=== PATIENT | female | born 1955 | race Caucasian/White ===

== ENCOUNTER 2016-09-05 12:33 | Emergency (ER) | payer OTHER ==
[2016-09-05] MEDS ORDERED: PHENERGAN IV ONE (12:53)
[2016-09-05] MEDS ORDERED: SODIUM CHLORIDE 0.9% INJ ONE (12:53)
--- NOTE | 2016-09-05 12:56 | PROVIDER DOCUMENTATION ---
HPI-Abdominal Pain/GI Problem - General Chief Complaint: N/V/D Stated Complaint: ABD PAIN Time Seen by Provider: 09/05/16 12:44 Source: patient Allergies/Adverse Reactions: Patient Allergies Allergy/AdvReac Type Severity Reaction Status Date / Time No Known Allergies Allergy Verified 09/05/16 13:42 Home Medications: Fexofenadine/Pseudoephedrine [Elzbieta-D 24 Hour Tablet] 1 each PO DAILY L.acidoph,Paracasei, B.lactis [Probiotic] 1 each PO DAILY 09/05/16 Meloxicam [Mobic] 7.5 mg PO DAILY 09/05/16 Naproxen Sodium [Aleve] 220 mg PO Q8H PRN PRN 09/05/16 Omeprazole [Prilosec] 20 mg PO DAILY@0700 09/05/16 Oxycodone HCl/Acetaminophen [Percocet 7.5-325 mg Tablet] 0.5 each PO BID - History of Present Illness-ABD Nature of Presenting Problems: 61 yo WF ate some ham which may have been 'old'yesterday at 4 p.m. yesterday. Since then has had crampy abdominal pain, nausea and wretching without vomiting. She had been dealing with post operative, narcotic induced constipation and had an enema last night which did produce stool but her chronic hemorrhoids became enflamed and she had some bleeding. She fills chilled and listless. Abdominal Pain Onset Location: reports: RLQ, epigastric Pain Radiation: reports: no radiation Quality of Pain: reports: aching, cramping, sharp Severity in ED: reports: moderate Onset/Duration: reports: last night Timing: reports: still present, intermittent Activities at Onset: reports: possible bad food Exposure to sick contacts?: No Modifying Factors: worse with: defecating, urinating, vomiting Associated Symptoms: reports: constipation, fever/chills, loss of appetite, malaise, weakness. denies: genitourinary problems Last BM: this morning Dark Stools Present?: reports: bright red blood Rectal Bleeding: reports: blood streaks on stool (hemorrhoids) Bruising or Bleeding Gums?: No Similar Symptoms Previously?: No Recently seen or treated by another doctor?: No Review of Systems - Adult - REVIEW OF SYSTEMS - ADULT Constitutional: reports: chills, fatique. denies: fever Eyes: reports: no symptoms reported Ears, Nose, Mouth & Throat: reports: no symptoms reported Cardiovascular: reports: no symptoms reported Respiratory: reports: no symptoms reported Gastrointestinal: reports: see HPI Genitourinary: reports: no symptoms reported Musculoskeletal: reports: no symptoms reported Integumentary: reports: no symptoms reported Neurological: reports: no symptoms reported Psychiatric: reports: no symptoms reported Endocrine: reports: no symptoms reported Hematologic/Lymphatic: reports: no symptoms reported Allergic/Immunologic: reports: no symptoms reported All Other Systems: Reviewed and Negative Past History - Adult - PAST MEDICAL HISTORY-ADULT Review of Records: reports: Old Records Reviewed, Nursing Assessment Review, Medications Reviewed, Social history reviewed & non-contributory. - PRIOR SURGERIES/PROCEDURES Surgical/Procedure History: reports: hysterectomy - PRIOR HOSPITALIZATIONS Prior Hospitalizations: reports: none - FAMILY HISTORY Family History: reviewed, not pertinent - SOCIAL HISTORY Smoking: denies Substance Use: none/never Alcohol Use Frequency: never Living Situation: family Physical Exam-General - PHYSICAL EXAM-ADULT Initial Vital Signs Reviewed: Yes - CONSTITUTIONAL General Appearance: moderate distress - EYES Eyes: PERRL/EOMI - HEAD, EARS, NOSE, MOUTH & THROAT HENMT: normocephalic/atraumatic - NECK Neck: non-tender - RESPIRATORY Respiratory: chest non-tender, lungs clear - CARDIOVASCULAR Cardiovascular: normal peripheral pulses, regular rate, rhythm. negative: tachycardia - GASTROINTESTINAL (ABDOMEN) Abdominal Exam: soft, guarding (voluntary), tenderness, McBurney's point tenderness. negative: Arana's sign - MUSCULOSKELETAL Back Exam: no CVA tenderness, no vertebral tenderness Extremity: no pedal edema, no calf tenderness - NEUROLOGIC Neurologic: grossly normal - PSYCHIATRIC Psych/Mental Status: normal mood/affect, normal thought content, normal thought process Progress - PLAN OF CARE/RESULTS Progress/Plan/Lab Results: Vital Signs Temp Pulse Resp BP Pulse Ox 09/05/16 12:39 97.9 F 98 H 20 121/81 99 No Known Allergies Allergy (Verified 09/05/16 13:42) Fexofenadine/Pseudoephedrine [Elzbieta-D 24 Hour Tablet] 1 each PO DAILY L.acidoph,Paracasei, B.lactis [Probiotic] 1 each PO DAILY 09/05/16 Meloxicam [Mobic] 7.5 mg PO DAILY 09/05/16 Naproxen Sodium [Aleve] 220 mg PO Q8H PRN PRN 09/05/16 Omeprazole [Prilosec] 20 mg PO DAILY@0700 09/05/16 Oxycodone HCl/Acetaminophen [Percocet 7.5-325 mg Tablet] 0.5 each PO BID Dietary Diet NPO Start Sun Sep 05 125 Laboratory 09/05/16 09/05/16 09/05/16 13:34 13:00 13:00 WBC 12.65 H RBC 5.02 Hgb 13.6 Hct 42.2 MCV 84.1 MCH 27.1 MCHC 32.2 L RDW Std Deviation 14.4 Plt Count 259 MPV 11.7 H Immature Gran % (Auto) 0.2 Neut % (Auto) 83.4 H Lymph % (Auto) 7.9 L [place] % (Auto) 7.5 Eos % (Auto) 0.8 Baso % (Auto) 0.2 Immature Gran # (Auto) 0.02 Neut # (Auto) 10.55 H Lymph # (Auto) 1.00 L [place] # (Auto) 0.95 H Eos # (Auto) 0.10 Baso # (Auto) 0.03 Sodium 136 Potassium 3.8 Chloride 97 L Carbon Dioxide 25 Anion Gap 14 BUN 11 Creatinine 0.7 BUN/Creatinine Ratio 16 Glucose 119 H Calculated Osmolality 272 Calcium 9.2 Total Bilirubin 0.70 AST 20 ALT 20 Alkaline Phosphatase 80 Total Protein 6.9 Albumin 4.3 Globulin 2.6 Albumin/Globulin Ratio 1.7 Amylase 46 Lipase 17 Urine Source CLEAN CATCH Urine Color YELLOW Urine Turbidity CLEAR Urine pH 6.0 Ur Specific [place] 1.019 Urine Protein NEGATIVE Ur Glucose (Stick) NEGATIVE Ur Ketones (Stick) NEGATIVE Urine Blood TRACE A Urine Nitrite NEGATIVE Urine Bilirubin NEGATIVE Urobilinogen Dipstick NORMAL Urine Leukocytes NEGATIVE Urine WBC (Auto) <10 Urine RBC (Auto) <10 U Epithel Cells (Auto) <10 Urine Bacteria (Auto) NEGATIVE 1410 patient still having sporadic crampy pain 1516 Patient feeling better. Had long discussion with patient and her in regard to her finding on CT, lab values and prognosis. I offered admission. Because she is out of [facility] due to knee surgery, she did not wish to stay in hospital. I agreed to write for antibiotics and strongly advised GI follow up tomorrow with Dr. White. Patient and were advised to return for any worsening of pain, fever, intractable vomiting or diarrhea. - CT/MRI 1 CT Study: Abdomen, Pelvis Impression: Abnormal CT Results: left sided colitis Departure - Departure Time of Disposition Order: 15:17 DIAGNOSIS: Colitis Abdominal pain Qualifiers: Abdominal location: right lower quadrant Qualified Code(s): R10.31 - Right lower quadrant pain Disposition: HOME 01 Certified Medical Emergency: Emergent Condition: Stable Additional Instructions: see Dr. White tomorrow Prescriptions: Promethazine [Phenergan] 25 mg PO Q6H PRN PRN #10 tablet PRN Reason: Nausea Ciprofloxacin 500 mg PO DAILY #7 ml Metronidazole 500 mg PO BID #14 tablet Referrals: Riaz Garcia [Primary Care Provider] -
[2016-09-05 13:12] LABS: MANUAL DIFF NEEDED? NO
[2016-09-05 13:17] LABS: BASO% 0.2 % (0.0-0.8); EOS% 0.8 % (0.0-10.0); HEMATOCRIT 42.2 % (37.0-47.0); HEMOGLOBIN 13.6 g/dL (12.0-16.0); IMM GRAN# 0.02 X1000 (0.0-0.04); IMM GRAN% 0.2 % (0.0-0.5); LYMPH% 7.9 % (20.5-51.1); MCH 27.1 PG (27-31); MCHC 32.2 g/dL (33-37); MCV 84.1 FL (81-99); MONO# 0.95 X1000 (0.11-0.59); MONO% 7.5 % (1.7-9.3); MPV 11.7 FL (7.4-10.4); NEUT% 83.4 % (42.2-75.2); PLT 259 X1000 (130-400); RBC 5.02 XMIL (4.2-5.4)
[2016-09-05 13:34] LABS: URINE CULTURE NEEDED? NO; URINE MICRO REVIEW NEEDED? NO; URINE SOURCE CLEAN CATCH
[2016-09-05 13:36] LABS: AGAP 14; ALBUMIN 4.3 g/dL (3.5-5.0); ALKALINE PHOSPHATASE 80 U/L (32-104); AMYLASE 46 U/L (20-200); BUN 11 mg/dL (8-22); CALCIUM 9.2 mg/dL (8.8-10.2); CHLORIDE 97 mmol/L (98-107); COSMO 272; GOT 20 U/L (10-30); GPT 20 U/L (10-36); LIPASE 17 U/L (13-60); POTASSIUM 3.8 mmol/L (3.5-5.1); SODIUM 136 mmol/L (136-145); TCO2 25 mmol/L (25-35); TOTAL PROTEIN 6.9 g/dL (6.3-8.3)
[2016-09-05 13:43] LABS: BILIRUBIN URINE NEGATIVE (NEGATIVE); BLOOD URINE TRACE (NEGATIVE); COLOR YELLOW; GLUCOSE URINE NEGATIVE (NEGATIVE); LEUKOCYTES URINE NEGATIVE (NEGATIVE); NITRITE URINE NEGATIVE (NEGATIVE); PROTEIN URINE NEGATIVE (NEGATIVE); SP GRAVITY URINE 1.019; TURBIDITY URINE CLEAR (CLEAR); UROBILINOGEN URINE NORMAL (NORMAL)
[2016-09-05 13:45] LABS: UR EPITHELIAL CELLS <10 /HPF (<10); URINE BACTERIA NEGATIVE /HPF; URINE RBC <10 /HPF (<10); URINE WBC <10 /HPF (<10)
--- NOTE | 2016-09-05 14:18 | Diag Imaging Result Document ---
PROCEDURE NAME: FLAT/UPRIGHT ABD/1 VIEW CHEST - 09/05/2016 PLAIN RADIOGRAPH OF THE CHEST AND ABDOMEN 3 VIEWS: COMPARISON: None available. FINDINGS: There are nonspecific bowel gas and stool patterns. There is trace small bowel gas in the left upper quadrant. There is nothing that would necessarily suggest obstruction. There is no evidence of large-volume free abdominal gas. There is no definite organomegaly. Lungs are clear and cardiac silhouette is unremarkable. IMPRESSION: Nonspecific abdomen.
[2016-09-05] MEDS ORDERED: LEVAQUIN PO ONE (15:13)
[2016-09-05] MEDS ORDERED: FLAGYL PO ONE (15:13)
--- NOTE | 2016-09-05 15:19 | Diag Imaging Result Document ---
PROCEDURE NAME: CT ABD/PELVIS W/ IV CONT ONLY - 09/05/2016 CT ABDOMEN AND PELVIS WITH IV CONTRAST: COMPARISON: None available. FINDINGS: There are several scattered hepatic cysts. The largest is in the left lobe measuring up to 2.8 cm axially. There is colonic wall thickening involving the distal portion of the transverse colon, the descending colon, and the sigmoid colon. There is also wall thickening at the cecum. These segments exhibit inflammatory stranding at their peripheries. This is consistent with colitis. The appendix is normal. The kidneys are essentially unremarkable with no evidence of obstructive uropathy. The urinary bladder is unremarkable. No free abdominal gas is identified. The remainder of the solid viscera of the abdomen and pelvis and the remainder of the GI tract is essentially unremarkable. IMPRESSION: 1. Nonspecific colitis involving the left side of the colon as well as the cecum as described. 2. Other incidental/nonacute findings detailed above.
[2016-09-05 15:39] VITALS: BP 121/77
== END 2016-09-05 15:38 | disposition home or self-care (01) ==
LOC: ED 12:33
DX: K52.9 Noninfective gastroenteritis and colitis, unspecified (principal); R10.31 Right lower quadrant pain; R10.13 Epigastric pain; R11.0 Nausea; K59.00 Constipation, unspecified; R53.81 Other malaise; R53.1 Weakness; K92.1 Melena; R53.83 Other fatigue; R68.83 Chills (without fever); R10.819 Abdominal tenderness, unspecified site; Z79.1 Long term (current) use of non-steroidal anti-inflammatories (NSAID); Z79.899 Other long term (current) drug therapy
CPT/HCPCS: 74022; 74177; 80053; 81001; 82150; 83690; 85025; 96374; J2550; Q9967